=== PATIENT | female | born 1995 | race Hispanic/Latino ===

== ENCOUNTER 2021-01-23 22:22 | Emergency (ER) | payer OTHER ==
[2021-01-24] MEDS ORDERED: IBUP-2070 PO (16:16)
[2021-01-24] MEDS ORDERED: CYCL5TAB PO (16:16)
== END 2021-01-23 22:45 | disposition left against medical advice (07) ==
LOC: EDH 22:22
DX: M54.2 Cervicalgia (principal); Z53.21 Procedure and treatment not carried out due to patient leaving prior to being seen by health care provider

== ENCOUNTER 2021-01-24 10:19 | Emergency (ER) | payer OTHER ==
[~2021-01-24] VITALS: Ht 152.4 cm; Wt 61.2 kg
[2021-01-24 10:21] VITALS: BP 125/73
[2021-01-24] MEDS ORDERED: KETOROLAC 30MG VIAL (30MG/ML) IM ONE (14:00)
[2021-01-24] MEDS ORDERED: KETOROLAC 30MG VIAL (30MG/ML) ONE (15:25)
[2021-01-24] MEDS ORDERED: IBUP-2070 PO (16:16)
[2021-01-24] MEDS ORDERED: CYCL5TAB PO (16:16)
== END 2021-01-24 16:25 | disposition home or self-care (01) ==
LOC: EDH 10:19
DX: S16.1XXA Strain of muscle, fascia and tendon at neck level, initial encounter (principal); M25.512 Pain in left shoulder; F32.9 Major depressive disorder, single episode, unspecified; V49.49XA Driver injured in collision with other motor vehicles in traffic accident, initial encounter; Y93.89 Activity, other specified; Y92.410 Unspecified street and highway as the place of occurrence of the external cause; Y99.8 Other external cause status
CPT/HCPCS: 72125; 73030; 73060; 81025; 96372; 99284; J1885